=== PATIENT | female | born 1975 | race Caucasian/White ===

== ENCOUNTER 2017-12-22 08:24 | Emergency (ER) | payer OTHER ==
[~2017-12-22] VITALS: Ht 165.1 cm; Wt 59.6 kg
[2017-12-22] MEDS ORDERED: ZOFRAN4 MG PO (09:36)
[2017-12-22 09:38] LABS: HEMATOCRIT 38.3 % (36.0-46.0); HEMOGLOBIN 13.7 G/DL (11.9-15.5); MCH 32.9 PG (29.0-34.0); MCHC 35.8 G/DL (30.0-36.0); MCV 91.8 FL (83-99); PLATELET COUNT 154 K/uL (156-360); RBC DIS.WIDTH-CV 11.8 % (11.8-14.6); RBC DIS.WIDTH-SD 39.8 % (39-53); RED BLOOD COUNT 4.17 M/uL (3.80-5.20); WHITE BLOOD COUNT 4.4 K/uL (4.1-10.2)
[2017-12-22 09:49] LABS: ALBUMIN 3.9 g/dL (3.2-4.8); CHLORIDE 109 mEq/L (99-109); SODIUM 141 mEq/L (136-147)
[2017-12-22 09:51] LABS: GLUCOSE 101 mg/dL (70-99)
[2017-12-22 09:52] LABS: TOTAL PROTEIN 6.1 g/dL (6.4-8.3)
[2017-12-22 09:53] LABS: TOTAL BILIRUBIN 0.5 mg/dL (0.0-1.0)
[2017-12-22 09:55] LABS: ALKALINE PHOSPHATASE 61 IU/L (3-129); CREATININE 0.8 mg/dL (0.6-1.3); GFR ESTIMATE (CALCULATED) > 59 mL/min/
[2017-12-22 09:56] LABS: UREA NITROGEN (BUN) 12 mg/dL (9-23)
[2017-12-22 09:57] LABS: AST (GOT) 11 IU/L (2-34)
[2017-12-22 09:58] LABS: ALT (GPT) 9 IU/L (3-49)
[2017-12-22 09:59] LABS: LIPASE 19 U/L (1.0-51.0)
[2017-12-22 11:37] VITALS: BP 129/81
== END 2017-12-22 11:39 | disposition home or self-care (01) ==
LOC: EME 08:24
PROVIDERS: Emergency Medicine Emergency Medical Services
DX: K52.9 Noninfective gastroenteritis and colitis, unspecified (principal); I10 Essential (primary) hypertension; F17.200 Nicotine dependence, unspecified, uncomplicated
CPT/HCPCS: 80053; 83690; 85027; 99281; 99284; J0780